=== PATIENT | female | born 1955 | race Caucasian/White ===

== ENCOUNTER → 2016-07-09 | Outpatient (CLI) | payer OTHER ==
--- NOTE | 2016-07-09 12:48 | DX ---
Lumbar Spine, 4 Views, at 11:52 a.m. Clinical History: 60-year-old female with low back pain. ICD- 10 Diagnostic Code: M54.42. Comparison Study: DEXA scan, dated December 08, 2014, retrieved from archive status. Technique: AP, neutral lateral, and lateral flexion and extension views were obtained upright. Findings: There are 5 nonrib-bearing vertebral bodies. The vertebral body heights are maintained. Th ere is 5 mm of L4 anterolisthesis above at L5, not changing significantly with flexion or extension v iews. There is mild degenerative disk space narrowing at L3-L4. There is some facet hypertrophy at L3 -L4, L4-L5, and L5-S1. There also appears to be some degenerative disk space narrowing at T11-T12, wi th a small ventral traction osteophyte present. There is some faint mural calcification of the back w all the abdominal aorta. The interpediculate distances are appropriate. The sacral arcuate lines are well-contoured. There is some minimal degenerative subchondral sclerosis associated with the caudal m argin of the right SI joint. Impression: Mild degenerative changes as detailed, with no instability.
== END ==
LOC: FIMAGING 11:52
PROVIDERS: ATTEND Physician Assistant Surgical
DX: M51.36 Other intervertebral disc degeneration, lumbar region (principal); M46.96 Unspecified inflammatory spondylopathy, lumbar region; M51.84 Other intervertebral disc disorders, thoracic region

== ENCOUNTER → 2016-12-11 | Outpatient (CLI) | payer OTHER | LOC: FIMAGING 09:52 | PROVIDERS: ATTEND Physician Assistant Surgical | DX: M51.36 Other intervertebral disc degeneration, lumbar region (principal) ==

== ENCOUNTER → 2016-12-27 | Outpatient (CLI) | payer OTHER | LOC: FIMAGING 18:49 | PROVIDERS: ATTEND Physician Assistant Surgical | DX: M51.36 Other intervertebral disc degeneration, lumbar region (principal); M51.26 Other intervertebral disc displacement, lumbar region; M48.06 Spinal stenosis, lumbar region; M48.07 Spinal stenosis, lumbosacral region; M99.73 Connective tissue and disc stenosis of intervertebral foramina of lumbar region ==

== ENCOUNTER → 2017-02-20 | Outpatient (CLI) | payer OTHER | LOC: FIMAGING 10:07 | PROVIDERS: ATTEND Family Medicine | DX: N28.1 Cyst of kidney, acquired (principal); K76.89 Other specified diseases of liver ==

== ENCOUNTER → 2018-10-06 | Outpatient (CLI) | payer OTHER ==
[~2018-10-06] MED LIST: IOPAMIDOL (ISOVUE 370) 100 ML BTL IV ONE
== END ==
LOC: FIMAGING 14:51
PROVIDERS: ATTEND Internal Medicine Cardiovascular Disease
DX: I77.819 Aortic ectasia, unspecified site (principal); I25.10 Atherosclerotic heart disease of native coronary artery without angina pectoris; K76.89 Other specified diseases of liver
CPT/HCPCS: Q9967